=== PATIENT | female | born 1970 | race Caucasian/White ===

== ENCOUNTER → 2017-01-08 | Outpatient (CLI) | payer OTHER ==
--- NOTE | 2017-01-08 08:26 | DIAGNOSTIC IMAGING REPORT ---
TRANSVAG-FEMALE PELVIS HISTORY: 46 years-old Female MOENORRHAGIA acute pelvic pain COMPARISON: None available TECHNIQUE: Multiple real-time sonographic images of the deep pelvic structures were obtained transabdominally and transvaginally assessing grayscale appearance, color and spectral flow. FINDINGS: TRANSABDOMINAL: Heterogeneous anteflexed uterus measures 8.8 x 5.0 x 4.6 cm. Endometrium is homogeneous, millimeters. Multiple uterine fibroids are noted with a subserosal fibroid measuring up to 2.9 cm long the anterior mid uterus. Additional subserosal fibroid is noted measuring up to 3.4 cm involving the anterior fundus. TRANSVAGINAL: Nothing cysts are present. Endometrium is homogeneous, 0.8 cm. No submucosal or endocavitary fibroid identified. Multiple probable intramural and subserosal leiomyomas are present. There is a pedunculated or subserosal 3.7 cm fibroid involving the anterior mid uterus with a 3.8 anterior fundal intramural leiomyoma noted. The right ovary measures 2.9 x 1.6 x 1.5 cm and is unremarkable with arterial inflow documented. Left ovary measures 3.8 x 3.0 x 3.9 cm with arterial inflow also present. There is an ovoid hypoechoic mildly complex lesion within left ovary measuring up to 3.1 cm suggesting complex cyst. IMPRESSION: 1. Fibroid uterus with multiple intramural and subserosal leiomyomas. Subserosal or pedunculated fibroid of the anterior right mid uterus as above. No definite submucosal or endocavitary fibroids identified . 2. Normal appearance of the endometrium. 3. Mildly complex hypoechoic lesion of the left ovary measuring 3.1 cm suggests hemorrhagic cyst. No evidence of ovarian torsion. The above report was generated using voice recognition software. It may contain grammatical, syntax or spelling errors. Electronically signed by: Luis Eduardo Cote M.D. 01/08/2017 8:24 AM Dictated Date/Time: 01/08/2017 8:15 AM
== END | disposition home or self-care (01) ==
LOC: C.ULTR 07:35
PROVIDERS: ATTEND Physician Assistant
DX: N92.0 Excessive and frequent menstruation with regular cycle (principal); D25.1 Intramural leiomyoma of uterus; D25.2 Subserosal leiomyoma of uterus

== ENCOUNTER → 2017-02-01 | Outpatient (CLI) | payer OTHER | END | disposition home or self-care (01) | LOC: C.PATHSPEC 13:48 | PROVIDERS: ATTEND Obstetrics & Gynecology | DX: N92.0 Excessive and frequent menstruation with regular cycle (principal) ==

== ENCOUNTER → 2017-02-01 | Outpatient (CLI) | payer OTHER ==
[2017-02-01 13:19] LABS: HEMATOCRIT 38.2 % (37-47); MEAN CELL VOLUME 83.6 fL (80-100); MEAN CORPUSCULAR HEMOGLOBIN 27.8 pg (25-34); MEAN CORPUSCULAR HGB CONC 33.2 g/dl (32-36); MEAN PLATELET VOLUME 10.7 fL (7.4-10.4); PLATELET COUNT 265 K/uL (130-400); RED BLOOD COUNT 4.57 M/uL (4.2-5.4); WHITE BLOOD COUNT 6.29 K/uL (4.8-10.8)
== END | disposition home or self-care (01) ==
LOC: C.LAB1850 11:41
PROVIDERS: ATTEND Obstetrics & Gynecology
DX: N92.0 Excessive and frequent menstruation with regular cycle (principal)